=== PATIENT | male | born 1960 | race Caucasian/White ===

== ENCOUNTER 2020-07-10 12:23 | Outpatient (REF) | payer BC, SELFPAY ==
[2020-07-10 21:29] LABS: Abs Immature Grans 0.02 10^3/uL (0.0-0.06); Absolute Basophil Count 0.02 10^3/uL (0.0-0.2); Absolute Eosinophil Count 0.16 10^3/uL (0.0-0.7); Absolute Lymphocyte Count 1.56 10^3/uL (1.2-3.4); Absolute Monocyte Count 0.58 10^3/uL (0.1-0.8); Basophils % 0.3; Eosinophils % 2.7; HCT 42.9 % (40.0-50.0); HGB 14.6 g/dL (13.5-17.5); Immature Grans % 0.3; Lymphocytes % 26.7; MCH 30.5 pg (27.0-33.0); MCV 89.7 fL (80-95); MPV 11.1 fL (8.0-11.0); Monocytes % 9.9; Neutrophils % 60.1; Nucleated RBC 0 %; Platelet Count 269 10^3/uL (130-400); RBC 4.78 10^6/uL (4.36-5.78); RDW 11.9 % (11.8-14.1); RDW-SD 38.8 fL; WBC 5.84 10^3/uL (4.4-10.8)
[2020-07-10 22:27] LABS: ALT 44 U/L (16-63); AST 24 U/L (15-37); Albumin 4.2 g/dL (3.4-5.0); Alkaline Phosphatase 118 U/L (46-116); Anion Gap 9.1 mmol/L (3-11); BUN 14 mg/dL (7-18); Bilirubin, Total 0.4 mg/dL (0.2-1.0); CO2 26.9 mmol/L (21.0-32.0); Calcium 9.1 mg/dL (8.5-10.1); Calculated LDL 173 mg/dL (<100); Chloride 104 mmol/L (98-107); Cholesterol 237 mg/dL (<200); Glucose 106 mg/dL (74-106); HDL Cholesterol 37 mg/dL (40-60); Potassium 3.9 mmol/L (3.5-5.1); Sodium 140 mmol/L (136-145); Total Protein 7.7 g/dL (6.4-8.2); Triglyceride 138 mg/dL (<150)
== END 2020-07-10 12:43 ==
LOC: NCHCN 12:23
PROVIDERS: PCP Internal Medicine; Visit Provider Physician Assistant
DX: Z00.00 Encounter for general adult medical examination without abnormal findings (principal); I10 Essential (primary) hypertension
CPT/HCPCS: 80053; 80061; 85025